=== PATIENT | male | born 1965 | race Hispanic/Latino ===

== ENCOUNTER 2019-07-27 07:43 | Emergency (ER) | payer SELFPAY ==
[2019-07-27] MEDS ORDERED: ACETAMINOPHEN EXTRA STRENGTH 500 MG TABLET ONE (08:09)
[2019-07-27 08:15] LABS: RAPID GROUP A STREP NEGATIVE (NEGATIVE)
[2019-07-27] MEDS ORDERED: OSELTAMIVIR PHOSPHATE 75 MG CAP ONE (08:44)
== END 2019-07-27 08:53 | disposition home or self-care (01) ==
LOC: EDH 07:43
DX: J10.1 Influenza due to other identified influenza virus with other respiratory manifestations (principal); Z87.891 Personal history of nicotine dependence
CPT/HCPCS: 71045; 87804; 87880; 93005

== ENCOUNTER 2021-04-01 17:14 | Emergency (ER) | payer SELFPAY ==
[~2021-04-01] VITALS: Ht 177.8 cm; Wt 98.0 kg
[2021-04-01 17:37] VITALS: BP 135/103
== END 2021-04-01 18:37 | disposition home or self-care (01) ==
LOC: EDH 17:14
DX: H65.91 Unspecified nonsuppurative otitis media, right ear (principal); E66.9 Obesity, unspecified; Z68.31 Body mass index [BMI] 31.0-31.9, adult
CPT/HCPCS: 99282